=== PATIENT | male | born 1960 | race Caucasian/White ===

== ENCOUNTER 2018-04-16 23:40 | Emergency (ER) | payer SELFPAY ==
[~2018-04-16] VITALS: Ht 162.6 cm; Wt 72.6 kg
[2018-04-16 23:40] VITALS: BP 116/68
--- NOTE | 2018-04-16 23:40 | NUR ---
BLAINE YE TO CHAIR E
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
[2018-04-17 00:14] VITALS: BP 111/69
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
== END 2018-04-17 00:14 ==
LOC: MED 23:40
DX: S13.4XXA Sprain of ligaments of cervical spine, initial encounter (principal); S93.401A Sprain of unspecified ligament of right ankle, initial encounter; F17.210 Nicotine dependence, cigarettes, uncomplicated; V43.52XA Car driver injured in collision with other type car in traffic accident, initial encounter; Y93.I9 Activity, other involving external motion; Y92.488 Other paved roadways as the place of occurrence of the external cause; Y99.8 Other external cause status
CPT/HCPCS: 99283